=== PATIENT | female | born 1990 | race African-American/Black ===

== ENCOUNTER 2017-12-02 21:29 | Emergency (ER) | payer OTHER ==
[2017-12-02 21:43] VITALS: BP 112/60; PULSE 78; TEMP 98.4; BMI 27.1
[2017-12-02] MEDS ORDERED: ALBUTEROL SO4 2.5/IPRATROPIUM 0.5 INH SOL 3 ML VIAL.NEB. NEB ONE (21:43)
--- NOTE | 2017-12-02 21:44 | PDOC ---
Rapid Medical Evaluation Time Seen by Provider: 12/02/17 21:40 Medical Evaluation: Allergies Allergy/AdvReac Type Severity Reaction Status Date / Time shellfish derived Allergy Severe Difficulty Verified 05/10/16 20:33 Breathing 12/02/17 21:41 Asthma exacerbation for two weeks. Ran out of her home albuterol and flovent. Admits to dry cough, shortness of breath, itchiness Exam: Ambulatory speaking in full sentences. Lung sounds clear but tight Orders: fabrice Pt. to proceed to FT for further evaluation
--- NOTE | 2017-12-03 01:50 | PDOC ---
History of Present Illness - General Chief Complaint: Asthma Stated Complaint: ASTHMA Time Seen by Provider: 12/02/17 21:40 History Source: Patient Exam Limitations: No Limitations - History of Present Illness Initial Comments: 12/03/17 02:50 This is a 27-year-old woman with history of asthma presents emergency Department with shortness of breath progressive over the past 3 weeks. Patient states she's been holding off on treatment and she has a 4-month-old child at home and is concerned the child without being fully taking care of if she were being treated. Patient's states she needs refills for her medications and does not need any intervention in the emergency department. Patient denies any fevers, chills, chest pain, cough, abdominal pain, nausea, vomiting. Past History - Past Medical History Allergies/Adverse Reactions: Allergies Allergy/AdvReac Type Severity Reaction Status Date / Time shellfish derived Allergy Severe Difficulty Verified 12/02/17 21:43 Breathing Home Medications: Ambulatory Orders Azithromycin 250 mg PO DAILY #4 tablet 05/10/16 Albuterol 0.083% Nebulizer Viri [Ventolin 0.083% Nebulizer Soln -] 1 neb NEB Q4H PRN #60 vial 12/03/17 Albuterol Sulfate Inhaler - [Ventolin HFA Inhaler -] 1 - 2 inh PO Q4H #1 inhaler 12/03/17 Prednisone [Prednisone 50 MG TABLETS] 50 mg PO DAILY #4 tablet 12/03/17 Asthma: Yes COPD: No - Suicide/Smoking/Psychosocial Hx Smoking History: Never smoked Have you smoked in the past 12 months: No Hx Alcohol Use: No Drug/Substance Use Hx: No Substance Use Type: None Review of Systems - Review of Systems Able to Perform ROS?: Yes Is the patient limited [place] proficient: No Constitutional: No: Symptoms Reported HEENTM: No: Symptoms Reported Respiratory: Yes: See HPI Cardiac (ROS): No: Symptoms Reported ABD/GI: No: Symptoms Reported : No: Symptoms Reported Musculoskeletal: No: Symptoms Reported Integumentary: No: Symptoms Reported Neurological: No: Symptoms reported *Physical Exam - Vital Signs Last Vital Signs Temp Pulse Resp BP Pulse Ox 98.4 F 78 18 112/60 96 12/02/17 21:41 12/02/17 21:41 12/02/17 21:41 12/02/17 21:41 12/02/17 21:41 - Physical Exam General Appearance: Yes: Appropriately Dressed. No: Apparent Distress HEENT: positive: Normal ENT Inspection Neck: positive: Trachea midline, Supple Respiratory/Chest: positive: Lungs Clear, Normal Breath Sounds. negative: Respiratory Distress, Accessory Muscle Use Cardiovascular: positive: Regular Rhythm, Regular Rate. negative: Murmur Integumentary: positive: Normal Color, Dry, Warm Neurologic: positive: Alert, Normal Response Moderate Sedation - Procedure Monitoring Vital Signs: Vital Signs Temp Pulse Resp BP Pulse Ox 98.4 F 78 18 112/60 96 12/02/17 21:41 12/02/17 21:41 12/02/17 21:41 12/02/17 21:41 12/02/17 21:41 ED Treatment Course - Medications Given in the ED: ED Medications Discontinued Medications Generic Name Dose Route Start Last Admin Trade Name Freq PRN Reason Stop Dose Admin Albuterol/Ipratropium 1 amp 12/02/17 21:43 12/02/17 22:08 Duoneb - NEB 12/02/17 21:44 1 amp ONCE ONE Administration Medical Decision Making - Medical Decision Making 12/03/17 01:47 A/P: 27-year-old female with history of asthma with shortness of breath Lungs clear to auscultation bilaterally patient is speaking in full sentences Discharge home with refill of her prescriptions *DC/Admit/Observation/Transfer Diagnosis at time of Disposition: Asthma Qualifiers: Asthma severity: mild Asthma persistence: intermittent Asthma complication type : uncomplicated Qualified Code(s): J45.20 - Mild intermittent asthma, uncomplicated - Discharge Dispostion Disposition: HOME Condition at time of disposition: Fair Decision to Admit order: No - Prescriptions Prescriptions: Albuterol 0.083% Nebulizer Viri [Ventolin 0.083% Nebulizer Soln -] 1 neb NEB Q4H PRN #60 vial PRN Reason: Wheezing Albuterol Sulfate Inhaler - [Ventolin HFA Inhaler -] 1 - 2 inh PO Q4H #1 inhaler Prednisone [Prednisone 50 MG TABLETS] 50 mg PO DAILY #4 tablet - Referrals - Patient Instructions Printed Discharge Instructions: Asthma -- Adult Additional Instructions: Keep well-hydrated. Take all medications as prescribed. Return to emergency department for shortness of breath, difficulty breathing, wheezing or any other concerns. - Post Discharge Activity
[2017-12-03] MEDS ORDERED: ALBUTEROL SO4 0.083% IH SOL 2.5 MG/3 ML VIAL.NEB. NEB ONE (01:52)
[2017-12-03] MEDS ORDERED: ALBUTEROL SO4 2.5/IPRATROPIUM 0.5 INH SOL 3 ML VIAL.NEB. NEB ONE (01:59)
== END 2017-12-03 02:02 | disposition home or self-care (01) ==
LOC: JER 21:29 → JERFT 21:29 → JER 12-03 02:02
PROC: 3E0F7GC Introduction of Other Therapeutic Substance into Respiratory Tract, Via Natural or Artificial Opening (ICD-10-PCS; principal; 2017-12-02)
PROC: 3E0F7GC Introduction of Other Therapeutic Substance into Respiratory Tract, Via Natural or Artificial Opening (ICD-10-PCS; 2017-12-02)
DX: J45.20 Mild intermittent asthma, uncomplicated (principal)
CPT/HCPCS: 94640; 94799; 99281-25; J7620

== ENCOUNTER 2021-09-02 12:18 | Emergency (ER) | payer OTHER ==
[2021-09-02 12:35] VITALS: BP 121/77; PULSE 73; TEMP 97; BMI 26.4
== END 2021-09-02 13:56 | disposition home or self-care (01) ==
LOC: JERFT 12:18 → JER 12:18 → JERFT 13:56
DX: Z76.0 Encounter for issue of repeat prescription (principal)
CPT/HCPCS: 99281-25

== ENCOUNTER 2022-04-05 03:08 | Emergency (ER) | payer OTHER ==
[2022-04-05] MEDS ORDERED: ALBUTEROL SO4 2.5/IPRATROPIUM 0.5 INH SOL 3 ML VIAL.NEB. NEB ONE ×3 (03:25→04:22)
[2022-04-05 03:30] VITALS: TEMP 97.6; BMI 25.8
[2022-04-05] MEDS ORDERED: DEXAMETHASONE 4 MG TABLET (FP) PO ONE (03:48)
[2022-04-05] MEDS ORDERED: DEXAMETHASONE 4 MG TABLET (FP) ONE (04:03)
[2022-04-05] MEDS: ALBUTEROL SO4 2.5/IPRATROPIUM 0.5 INH SOL 3 ML VIAL.NEB. NEB SCH ×3 (04:26→04:50)
[2022-04-05 05:26] VITALS: BP 118/71; PULSE 102; RESP 20
== END 2022-04-05 06:09 | disposition home or self-care (01) ==
LOC: JER 03:08
PROC: 3E0F7GC Introduction of Other Therapeutic Substance into Respiratory Tract, Via Natural or Artificial Opening (ICD-10-PCS; principal; 2022-04-05)
PROC: 3E0F7GC Introduction of Other Therapeutic Substance into Respiratory Tract, Via Natural or Artificial Opening (ICD-10-PCS; 2022-04-05)
DX: J45.21 Mild intermittent asthma with (acute) exacerbation (principal)
CPT/HCPCS: 0241U-QW; 99283-25

== ENCOUNTER 2023-09-28 12:06 | Emergency (ER) | payer OTHER ==
[2023-09-28 12:12] VITALS: RESP 20; TEMP 98.3; BMI 26.4
[2023-09-28 13:10] LABS: BASO % 0.9 % (0-2.0); EOS % 4.6 % (0-4.5); HEMATOCRIT 37.3 % (32.4-45.2); HEMOGLOBIN 12.4 GM/dL (10.7-15.3); LYMPH % 41.9 % (8-40); MCH 30.2 pg (25.7-33.7); MCHC 33.3 g/dl (32.0-36.0); MEAN CELL VOLUME 90.4 fl (80-96); MEAN PLT VOLUME 6.7 fl (7.5-11.1); MONO % 12.8 % (3.8-10.2); NEUT % 39.8 % (42.8-82.8); PLATELET COUNT 301 10^3/uL (134-434); RBC 4.12 M/mm3 (3.60-5.2); RDW 12.8 % (11.6-15.6); WHITE BLOOD COUNT 3.4 K/mm3 (4.0-10.0)
[2023-09-28 13:17] LABS: INR 1.02 (0.83-1.09); PROTHROMBIN TIME (PATIENT) 11.8 SEC (9.7-13.0)
[2023-09-28 13:20] LABS: POTASSIUM 3.9 mmol/L (3.5-5.1)
[2023-09-28 13:22] LABS: CALCIUM 8.7 mg/dL (8.5-10.1)
[2023-09-28 13:23] LABS: ALBUMIN 3.5 g/dl (3.4-5.0); BLOOD UREA NITROGEN 7.1 mg/dL (7-18)
[2023-09-28 13:26] LABS: CREATININE 0.7 mg/dL (0.55-1.3)
[2023-09-28 13:28] LABS: BILIRUBIN,TOTAL 0.5 mg/dL (0.2-1); TOT PROT 7.4 g/dl (6.4-8.2)
[2023-09-28] MEDS: METHOTREXATE SODIUM/PF 25 MG/ML VIAL IM ONE (16:26)
[2023-09-28 16:52] VITALS: BP 124/70; PULSE 65
== END 2023-09-28 16:53 | disposition home or self-care (01) ==
LOC: JER 12:06
PROC: 3E023GC Introduction of Other Therapeutic Substance into Muscle, Percutaneous Approach (ICD-10-PCS; principal; 2023-09-28)
DX: O26.899 Other specified pregnancy related conditions, unspecified trimester (principal); R10.2 Pelvic and perineal pain; O20.9 Hemorrhage in early pregnancy, unspecified; Z3A.00 Weeks of gestation of pregnancy not specified
CPT/HCPCS: 36415; 76817-TC; 80053; 84702; 85025; 85610; 85730; 86850; 86870; 86880; 86900; 86901; 86902; 99284-25; J9260